=== PATIENT | male | born 1955 ===

== ENCOUNTER 2018-07-05 10:37 | Outpatient (CLI) | payer OTHER | END 2018-07-05 16:51 | disposition home or self-care (01) | LOC: RAD 10:37 | DX: N20.0 Calculus of kidney (principal) ==

== ENCOUNTER 2018-07-08 12:00 | Inpatient (IN) | payer OTHER ==
[2018-07-08] MEDS ORDERED: ALTACE5 MG PO (13:22)
== END 2018-07-15 09:35 | disposition home or self-care (01) | DRG 661 ==
LOC: EDSTATUS 12:00 → ADM 12:00 → SURG 07-13 07:00 → O/R 07-13 09:08 → SURH 07-13 09:08 → SURG 07-13 12:00 → SURH 07-13 18:39
PROVIDERS: Urology
PROC: 0T768DZ Dilation of Right Ureter with Intraluminal Device, Via Natural or Artificial Opening Endoscopic (ICD-10-PCS; 2018-07-13)
PROC: BT1FZZZ Fluoroscopy of Left Kidney, Ureter and Bladder (ICD-10-PCS; 2018-07-13)
PROC: 0TC18ZZ Extirpation of Matter from Left Kidney, Via Natural or Artificial Opening Endoscopic (ICD-10-PCS; principal; 2018-07-13 07:00)
PROC: BT12YZZ Fluoroscopy of Left Kidney using Other Contrast (ICD-10-PCS; 2018-07-15)
DX: N20.0 Calculus of kidney (principal); I10 Essential (primary) hypertension